=== PATIENT | female | born 1945 | race Caucasian/White ===

== ENCOUNTER → 2025-04-04 | Outpatient (REF) | payer MEDICARE | LOC: RESP 12:21 → EDSTATUS 13:00 | PROVIDERS: ATTEND Nurse Practitioner Family | DX: R06.02 Shortness of breath (principal); J45.909 Unspecified asthma, uncomplicated; R22.2 Localized swelling, mass and lump, trunk; R05.9 Cough, unspecified; R13.10 Dysphagia, unspecified; M40.209 Unspecified kyphosis, site unspecified; G47.33 Obstructive sleep apnea (adult) (pediatric); Q67.6 Pectus excavatum; R06.83 Snoring; Z87.891 Personal history of nicotine dependence | CPT/HCPCS: 94060; 94727; 94729 ==